=== PATIENT | male | born 1985 | race Caucasian/White ===

== ENCOUNTER 2016-12-17 22:20 | Emergency (ER) | payer SELFPAY ==
[2016-12-17 22:26] VITALS: BP 145/95; PULSE 107; RESP 18; TEMP 98.4; O2SAT 96
--- NOTE | 2016-12-17 23:31 | EDPHY ---
H & P Stated Complaint: r wrist injury 07/13, worsening pain troday Source: Patient Exam Limitations: No limitations - Personal History Current Tetanus Diphtheria and Acellular Pertussis (TDAP): Yes - Medical/Surgical History Other PMH: hand fx - Social History Smoking Status: Former smoker HPI/ROS: CHIEF COMPLAINT: Hand pain HISTORY OF PRESENT ILLNESS: Patient complains of right hand pain. This is the 5th metacarpal. Recently started in June after punching a wall. He says that he had a fracture that was missed upon his 1st evaluation. He says he did not follow up with Orthopedics or hand surgeon. He says he was doing well until a few days ago when the pain returned. It is moderate to severe pain that starts in the right 5th metacarpal. Radiates up and down the entire arm. Occasional no numbness and tingling with. He says the pain sometimes radiates across his body to the left arm and leg no new injury. No weakness. No bleeding , bruising or laceration. No fever chills. No other associated complaints or modifying factors. PRIOR ORTHO INJURIES: Right hand fracture outside of [place] ESTABLISHED ORTHOPEDIST: None REVIEW OF SYSTEMS: Ten systems reviewed and are negative unless otherwise noted in the HPI EXAMINATION General Appearance: Alert, no distress Cardiovascular: Pulses normal throughout. Symmetric radial pulses 2+ Brisk cap refill Neurological: A&O, sensory symmetric, strength symmetric. Excellent strength of the interossei. No wrist drop Skin: Warm and dry, no rash. No lacerations abrasions or contusions Extremities: Tenderness to palpation of the left 5th metacarpal. No crepitus or deformity. No swelling, laceration or abrasion. Range of motion is intact and symmetric to the left upper extremity. Good strength of the interossei. Psychiatric: Mood and affect normal DIFFERENTIAL DIAGNOSES: Including but not limited to fracture, sprain, strain, contusion, dislocation, neuropathy MDM: 11:25 p.m. Right hand pain. This originally started in June due to an injury sustained by punching a wall. He says that there was no formal diagnosis and that a fracture was missed in that it did not heal well. X-ray today does not reveal any malunion or delayed healing scenario. He has no acute fracture. He is neuro intact despite complaints of pain radiating up the entire arm. He has no neck or back pain. He has no peripheral neuropathy that I can appreciate. He has full range of motion and good strength of the interossei. He has no wrist drop. He has no snuffbox tenderness. Recommend discharge home with hand splint and referral to hand surgeon for definitive care. ED Precautions: Worsening pain. Erythema, edema, cyanosis, pallor, paresthesia or anesthesia. SUPERVISION: This patient was independently evaluated without direct examination by the attending physician. Case was discussed with attending physician. (Steve Wiggins ) Constitutional: Initial Vital Signs Temperature (C) 36.9 C 12/17/16 22:23 Heart Rate 107 H 12/17/16 22:23 Respiratory Rate 18 12/17/16 22:23 Blood Pressure 145/95 H 12/17/16 22:23 O2 Sat (%) 96 12/17/16 22:23 O2 Delivery Mode Room Air Allergies/Adverse Reactions: tree nut Allergy (Verified 12/17/16 22:23) Home Medications: Medication Instructions Recorded Adderall 12/17/16 Medical Decision Making - Diagnostics Imaging Results: Imaging Impressions Hand X-Ray 12/17/16 22:26 Impression: [place] soft tissue swelling. Other Provider: PHYSICIAN DOCUMENTATION: The patient was evaluated and managed by the Physician Assistant Director [facility]. My co- signature indicates that I have reviewed this chart and I agree with the findings and plan of care as documented. I am the secondary supervising physician. (Jammie Greene) Departure - Departure Disposition: Home, Routine, Self-Care Clinical Impression: Hand pain, right Condition: Good Instructions: Arthralgia (ED) Additional Instructions: 1. Velcro wrist splint for comfort 2. Ibuprofen 600-800 mg every 8 hours as needed 3. Follow up with hand surgeon for definitive care 4. Return here for any worsening pain, sensory changes or swelling Referrals: NONE *PRIMARY CARE P,. [Primary Care Provider] - As per Instructions Yomi Hardwick MD [Medical Doctor] - As per Instructions
== END 2016-12-17 23:43 | disposition home or self-care (01) ==
DX: M79.641 Pain in right hand (principal); Z87.891 Personal history of nicotine dependence
CPT/HCPCS: L3908